=== PATIENT | female | born 2000 | race Asian ===

== ENCOUNTER 2018-08-14 05:16 | Emergency (ER) | payer OTHER ==
--- NOTE | 2018-08-14 05:51 | ED ---
Nausea/Vomiting/Diarrhea HPI - HPI Summary HPI Summary: 17-year-old female presents with onset of headache last evening. States headache improved with ibuprofen and she went to sleep. She woke at approximately 02:00 with body aches, shaking chills, and severe generalized abdominal pain. Associated with nausea and approximately 3 episodes of vomiting. She notes that she had an IUD placed approximately 3 months ago. Has had continuous daily spotting since the IUD placement. She has noted that over past 1-2 weeks she has been having some urinary frequency. Also reports breast tenderness. - History of Current Complaint Chief Complaint: EDNauseaVomitDiarrh Stated Complaint: VOMITING Time Seen by Provider: 08/14/18 05:41 Hx Obtained From: Patient Onset/Duration: Sudden Onset, Lasting Hours Severity Currently: Moderate Pain Intensity: 6 Location: Diffuse Character: Cramping Aggravating Factor(s): Movement, Deep Breaths Alleviating Factor(s): Nothing Nausea/Vomiting Presence: Nauseated, Vomiting Nausea/Vomiting Duration: 0-12 hours Vomiting Characteristics: Nonbilious Diarrhea Presence: No - Risk Factors Surgical Obstruction Risk Factor(s): Negative - Allergies/Home Medications Allergies/Adverse Reactions: Allergies Allergy/AdvReac Type Severity Reaction Status Date / Time No Known Allergies Allergy Verified 08/14/18 05:21 Home Medications: Home Medications Lexapro 10 mg 10 mg PO DAILY 08/14/18 [History Confirmed 08/14/18] PMH/Surg Hx/FS Hx/Imm Hx Previously Healthy: Yes - Denies significant PMH - Surgical History Surgery Procedure, Year, and Place: None Infectious Disease History: No Infectious Disease History: Denies: Traveled Outside the [place] in Last 30 Days - Family History Known Family History: Positive: Non-Contributory - Social History Occupation: Student Lives: Dormitory/Roommates Alcohol Use: None Substance Use Type: Reports: None Smoking Status (MU): Never Smoked Tobacco Review of Systems Positive: Fever, Chills Negative: Palpitations, Chest Pain Negative: Shortness Of Breath, Cough Positive: Abdominal Pain, Vomiting, Nausea. Negative: Diarrhea Positive: frequency. Negative: burning, dysuria, discharge, flank pain, hematuria, incontinence, urgency All Other Systems Reviewed And Are Negative: Yes Physical Exam - Summary Physical Exam Summary: GENERAL APPEARANCE: Well developed, well nourished, alert and cooperative adult female. Appears to be in mild discomfort hold abdomen. HEAD: Atraumatic. normocephalic. EYES: PERRL, EOM intact. Vision is grossly intact. EARS: External auditory canals and tympanic membranes clear, hearing grossly intact. NOSE: No nasal discharge. THROAT: Oral cavity and pharynx normal. No inflammation, swelling, exudate, or lesions. Teeth and gingiva in good general condition. NECK: Neck supple, non-tender without lymphadenopathy. CARDIAC: Normal S1 and S2. No S3, S4 or murmurs. Rhythm is regular. Tachycardic. There is no peripheral edema, cyanosis or pallor. Extremities are warm and well perfused. Capillary refill is less than 2 seconds. LUNGS: Clear to auscultation and percussion without rales, rhonchi, wheezing or diminished breath sounds. ABDOMEN: Diminished bowel sounds. Nondistended. Generalized abdominal tenderness with light palpation. No guarding or rebound. No masses or hepatosplenomegally. MUSKULOSKELETAL: ROM intact to all extremities. No joint erythema or tenderness. Normal muscular development. Normal gait. EXTREMITIES: No significant deformity or joint abnormality. No edema. Peripheral pulses intact. NEUROLOGICAL: Strength and sensation symmetric and intact throughout. SKIN: Skin normal color, texture and turgor with no lesions or eruptions. Triage Information Reviewed: Yes Vital Signs On Initial Exam: Initial Vitals Temp Pulse Resp BP Pulse Ox 100.3 F 110 16 117/73 97 08/14/18 05:17 08/14/18 05:17 08/14/18 05:17 08/14/18 05:17 08/14/18 05:17 Vital Signs Reviewed: Yes Diagnostics - Vital Signs Vital Signs Temp Pulse Resp BP Pulse Ox 08/14/18 05:17 100.3 F 110 16 117/73 97 - Laboratory Result Diagrams: 08/14/18 06:26 08/14/18 06:26 Lab Statement: Any lab studies that have been ordered have been reviewed, and results considered in the medical decision making process. - CT No standard instances CT Interpretation Completed By: Radiologist Summary of CT Findings: Patient Name: LIAM QUEVEDO Medical Record#: [id number]. Ordering Physician: Valeriano Rogers NP Acct.#: [id number]. : 2000 Age: 17 Sex: F Location: EMERGENCY DEPARTMENT. Exam Date: 08/14/18819 ADM Status: REG ER. Order Information: CT ABD/PEL W. Accession Number: [id number]. CPT: 18569. Indication: Abdominal pain and fever. Contrast: Administered 76.0 ml of OMNIPAQUE 300 mg/ml. CT of the abdomen and pelvis was performed after oral and IV contrast administration. Coronal and sagittal reconstructed images were obtained. Lung bases demonstrate no pleural fluid, nodules or masses. Heart is of normal size. without evidence of pericardial effusion. Liver is normal in size. No focal lesions or intrahepatic ductal dilatation is noted. Gallbladder demonstrates no calcified gallstones. No pericholecystic fluid or wall. thickening is noted. The pancreas demonstrates no mass or pancreatic duct dilatation. The. common duct is not dilated. The spleen is normal in size. No adrenal masses are noted. The kidneys demonstrate. symmetric nephrograms without focal lesions. No retroperitoneal lymphadenopathy is noted. CT of the pelvis demonstrates urinary bladder to be distended. IUD is in place. There is. serpiginous low density structure superior to the left adnexa. Possibility of hydrosalpinx. should be considered. Correlation with cervical motion tenderness and internal exam is. suggested to exclude pelvic inflammatory disease. IUD is in place. The appendix is visualized and filled with contrast and air which is not dilated. Small. bowel demonstrates no abnormal dilatation. Urinary bladder is otherwise unremarkable. IMPRESSION: Normal appendix. Distended urinary bladder. Superior to the left adnexa is serpiginous low density. structure especially superior to the left adnexa. The possibility of hydrosalpinx should. be considered. Correlation with internal exam and evaluation for cervical motion. tenderness is suggested to exclude PID. No free fluid is identified. IUD is in place. Re-Evaluation - Re-Evaluation First Eval Re-Evaluation Time: 08:27 Change: Improved Comment: Patient received 1 liter IVF, morphine 2 mg, and ondansetron 4 mg. States pain much improved. Mild nausea. WBC 14.2, CRP 30.29, Hcg negative. Awaiting CT abd/pelv w contrast. Second Eval Re-Evaluation Time: 12:10 Comment: CT abdomen/pelvis unremarkable except for a serpiginous low density structure superior to the left adnexa with concern for possible hydrosalpinx. Pelvic exam performed. There is some thin, white discharge present. Normal cervix with IUD strings visible through the os. Cultures obtained and sent to lab. No cervical motion tenderness. Mild bilateral adnexal tenderness without mass. Naus/Vom/Diarrhea Course/Dx - Course Course Of Treatment: 17-year-old female presents with onset of headache last evening. States headache improved with ibuprofen and she went to sleep. She woke at approximately 02:00 with body aches, shaking chills, and severe generalized abdominal pain. Associated with nausea and approximately 3 episodes of vomiting. She notes that she had an IUD placed approximately 3 months ago. Has had continuous daily spotting since the IUD placement. She has noted that over past 1-2 weeks she has been having some urinary frequency. Also reports breast tenderness. Febrile and tachycardic otherwise VSS. Exam revealed nontoxic appearing female in no acute distess who was mildly tachycardic with generalized abdominal pain without guarding or rebound tenderness. She was given 1 literIV bolus of NS, ondansetron, and morphine 2 mg with improvement in symptoms. Labs significnat for an elvated WBC 14.2 with neutophillia, CRP 30, negative serum , and UA with 3+ RBCs, 3+ WBCs, 2+ leukocyte esterase, and 2+ ketones. CT abd/pelvis unremarkable except for serpiginous low density structure superior to the left adnexa suggestive of possible hydrosalpinx. Pelvic exam unremarkable. Cultures were obtained and sent. Her temporal temperature became more elevated to max temp of 105 F. She was given ketoralac 30 mg IV and temperature was normalizing at time of discharge. Her pain was still present but much improved. She had no episodes of vomiting during her entire stay in the ED. She is being discharged with ondansetron ODT PRN for N/V and will be started on cephalexin 500 mg BID x 5 days to treat empirically for UTI. She is to follow up at [facility] in 3 days if symptoms persist. Warning symptoms were reviewed with patient. Verbalizes understanding and agrees with POC. - Differential Dx/Diagnosis Differential Diagnoses - Female: Appendicitis, Ectopic , Gall Bladder Disease, Pelvic Inflammatory Disease, Urinary Tract Infection, Gastroenteritis ( Viral), Gastroenteritis (Bacterial), Vomiting, Dehydration Provider Diagnosis: Acute abdominal pain, Urinary tract infection Condition At Discharge: Stable Discharge - Sign-Out/Discharge Documenting (check all that apply): Patient Departure - Discharge Plan Condition: Stable Disposition: HOME Prescriptions: cephALEXin [Keflex] 500 mg PO BID #10 capsule Ondansetron ODT TAB* [Zofran 4 MG Odt TAB*] 4 mg PO Q8H PRN #9 tab.odt PRN Reason: Nausea/Vomiting Patient Education Materials: Acute Abdominal Pain (ED) Forms: *School Release Referrals: No Primary Care Phys,NOPCP [Primary Care Provider] - Additional Instructions: Your lab work today in the emergency room revealed a slightly elevated white blood cell count, elevated CRP which indicates inflammation in the body, and the urinalysis is suggestive of a possible urinary tract infection. The CT scan did not show any evidence of appendicitis. There was evidence of a swollen fallopian tube on the left side called a hydrosalpinx however your pelvic exam was not suggestive of an acute infection. We did send cultures to test for possible sexually transmitted infections. It may take a few days for these results to come back. We will treat you for the possible urinary tract infection. Take cephalexin 500 mg 1 capsule twice a day for 5 days. A urine culture was sent today. It will take 48-72 hours to get these results. We will contact you if the culture suggests a change in your treatment plan. Take ondansetron (Zofran) 1 tab every 8 hours as needed for nausea or vomiting. You were given a dose of this prior to discharge. You were given a pain medication called ketoralac (Toradol) prior to discharge. This is a medication similar to over the counter non-steroidal medications such as ibuprofen (Advil, Motrin) and naproxen (Aleve). You should not take any of these medications for at least 8 hours after receiving this injection. You may take acetaminophen (Tylenol) according to directions if you need something for fever or pain. After you have waited the 8 hours you may then also use ibuprofen or naproxen according to directions. Be sure to drink plenty of fluids to stay well hydrated. Avoid beverages containing alcohol or caffeine. Follow up at [facility] in 3 days if symptoms persist. Return to the emergency room if you have a persistent fever greater than 100.5 F , persistent vomiting despite taking the ondansetron, have worsening abdominal pain, become weak or dizzy, or have any worsening of symptoms. - Billing Disposition and Condition Condition: STABLE Disposition: Home
[2018-08-14] MEDS ORDERED: NS 0.9% 1000 ML* 1,000 ML IV ONE ×2 (06:05→08:30)
[2018-08-14] MEDS ORDERED: Ondansetron INJ* 2 MG/ML VIAL IV ONE ×2 (06:10→12:14)
[2018-08-14] MEDS ORDERED: Morphine VIAL* 4 MG/ML VIAL (1 ml vial) IV ONE (06:30)
[2018-08-14 07:20] LABS: Hematocrit 40 % (35-47); Hemoglobin 12.4 g/dl (12.0-16.0); Mean Corpuscular HGB Conc 31 g/dl (31-36); Mean Corpuscular Hemoglobin 20 pg (27-31); Mean Corpuscular Volume 65 fL (80-97); Mean Platelet Volume 8.8 fL (7.4-10.4); Platelet Count 205 10^3/ul (150-450); Red Blood Count 6.15 10^6/ul (4.00-5.40); Red Cell Distribution Width 15 % (10.5-15); White Blood Count 14.2 10^3/ul (3.5-10.8)
[2018-08-14 07:34] LABS: EGFR Non-African American 119.5 (>60)
[2018-08-14] MEDS ORDERED: Iohexol 300* (CONTRAST) 10 ML SDV IV ONE (08:27)
[2018-08-14 08:49] LABS: ABS Basophils 0 10^3/ul (0-0.2); ABS Neutrophils 13.2 10^3/ul (1.5-7.7); Monocytes % 1 %
[2018-08-14 09:36] LABS: Urine Appearance Cloudy; Urine Blood 3+ (Negative); Urine Color Yellow; Urine Ketones 2+ (Negative); Urine Protein Negative (Negative); Urine Red Blood Cell 3+(>10/hpf) (Absent); Urine Specific Gravity 1.016 (1.010-1.030); Urine Urobilinogen Negative (Negative); Urine White Blood Cell 3+(>20/hpf) (Absent)
[2018-08-14] MEDS ORDERED: Ketorolac INJ* 30 MG/ML 1 ML VIAL IV PUSH ONE (12:14)
[2018-08-14 12:41] VITALS: BP 108/60
--- NOTE | 2018-08-15 06:25 | PN ---
Progress Note - Progress Note Date of Service: 08/15/18 Note: patient vaginal culture came back positive for cheri. sent a dose of diflucain to [place]. spoke with patient and told of results and script that was sent.
== END 2018-08-14 13:24 | disposition home or self-care (01) ==
LOC: ED 05:16
DX: R10.9 Unspecified abdominal pain (principal); N39.0 Urinary tract infection, site not specified; Z97.5 Presence of (intrauterine) contraceptive device; B37.3 Candidiasis of vulva and vagina
CPT/HCPCS: 36415; 74177; 80053; 81003; 81015; 83605; 83690; 84702; 85025; 86140; 87040; 87086; 87480; 87491; 87510; 87591; 87661; 96361; 96374; 96375; 99283; J1885; J2270; J2405; Q9967